=== PATIENT | female | born 1950 | race African-American/Black ===

== ENCOUNTER 2020-08-24 13:05 | Emergency (ER) | payer BC ==
[~2020-08-24] VITALS: Ht 167.6 cm; Wt 61.2 kg
[2020-08-24 13:22] VITALS: BP_SYST 156
[2020-08-24] MEDS ORDERED: ONDANSETRON 4 MG ODT TAB PO ONE (14:30)
[2020-08-24] MEDS ORDERED: MAG-AL HYDROX/SIMETH 30 ML UDC PO ONE (14:30)
[2020-08-24 14:46] LABS: BASOPHILS % (AUTO) 0.2 % (0.0-2.0); HEMATOCRIT 36.3 % (36-48); HEMOGLOBIN 12.4 g/dL (12.0-16.0); LYMPHOCYTES # (AUTO) 0.7 K/uL (1.0-5.5); LYMPHOCYTES % (AUTO) 8.8 % (20.5-51.5); MEAN CORPUSCULAR HEMOGLOBIN 31 pg (27-31); MEAN CORPUSCULAR HGB CONC 34 % (32-36); MEAN CORPUSCULAR VOLUME 90 fL (79.0-98.0); MONOCYTES # (AUTO) 0.4 K/uL (0.0-1.0); MONOCYTES % (AUTO) 5.6 % (1.7-9.3); NEUTROPHILS # (AUTO) 6.3 K/uL (1.8-7.7); NEUTROPHILS % (AUTO) 85.4 % (40.0-70.0); PLATELET COUNT (AUTO) 268 K/uL (130-430); RED BLOOD CELL COUNT(AUTO) 4.06 MIL/uL (4.2-6.2); RED CELL DISTRIBUTION WIDTH 12.4 % (9.0-15.0); WHITE BLOOD COUNT (AUTO) 7.4 K/uL (4.8-10.8)
[2020-08-24 15:10] LABS: CALCIUM 8.9 mg/dL (8.4-11.0); CREATININE 0.81 mg/dL (0.55-1.30); POTASSIUM 4.3 mmol/L (3.5-5.1)
[2020-08-24 15:16] LABS: ALBUMIN 3.6 g/dL (3.4-4.8); TOTAL BILIRUBIN 0.2 mg/dL (0.0-1.0)
[2020-08-24 15:33] VITALS: BP_SYST 135
[2020-08-24] MEDS ORDERED: MECL-225 PO (15:37)
== END 2020-08-24 16:36 | disposition home or self-care (01) ==
LOC: SED 13:05
DX: R42 Dizziness and giddiness (principal); R11.2 Nausea with vomiting, unspecified; Z79.899 Other long term (current) drug therapy
CPT/HCPCS: 36415; 80053; 85025; 93005; 99284; Q0162